=== PATIENT | female | born 1970 | race Caucasian/White ===

== ENCOUNTER → 2018-09-09 | Outpatient (CLI) | payer BC ==
[~2018-09-09] MED LIST: AMBIEN5 MG PO; FLOMAX 0.40.4 MG/CAP PO; MOTRIN 600600 MG/TAB PO; NORCO 325 MG-51 TAB PO
== END ==
LOC: MC.RAD 10:24
DX: Z12.31 Encounter for screening mammogram for malignant neoplasm of breast (principal); Z98.82 Breast implant status

== ENCOUNTER → 2018-12-23 | Outpatient (CLI) | payer BC | LOC: MC.RAD 12-22 07:30 | DX: N63.10 Unspecified lump in the right breast, unspecified quadrant (principal) ==

== ENCOUNTER → 2018-12-25 | Outpatient (CLI) | payer BC | LOC: MC.RAD 12:49 | DX: R59.0 Localized enlarged lymph nodes (principal); Z98.82 Breast implant status | CPT/HCPCS: A4648 ==

== ENCOUNTER → 2018-12-31 | Outpatient (CLI) | payer BC | LOC: MC.RAD 08:58 | DX: N63.42 Unspecified lump in left breast, subareolar (principal); Z98.82 Breast implant status ==

== ENCOUNTER 2019-01-20 07:07 | Day surgery (SDC) | payer BC | END 2019-01-20 10:30 | disposition home or self-care (01) | LOC: SDCO 07:07 | DX: C50.112 Malignant neoplasm of central portion of left female breast (principal); C77.3 Secondary and unspecified malignant neoplasm of axilla and upper limb lymph nodes; Z17.1 Estrogen receptor negative status [ER-]; Z98.82 Breast implant status; I34.0 Nonrheumatic mitral (valve) insufficiency; E78.00 Pure hypercholesterolemia, unspecified; Z90.710 Acquired absence of both cervix and uterus; Z79.899 Other long term (current) drug therapy; Z82.49 Family history of ischemic heart disease and other diseases of the circulatory system ==

== ENCOUNTER → 2019-01-28 | Outpatient (CLI) | payer BC ==
[~2019-01-28] MED LIST changes: +AMBIEN 5MG TABLE5 MG PO; -AMBIEN5 MG PO; +PROBIOTIC FORMU1 CAP PO
== END ==
LOC: MC.RAD 08:07
DX: R92.0 Mammographic microcalcification found on diagnostic imaging of breast (principal); Z98.82 Breast implant status

== ENCOUNTER → 2019-03-26 | Outpatient (CLI) | payer BC | LOC: MC.RAD 07:30 | DX: C50.912 Malignant neoplasm of unspecified site of left female breast (principal); Z92.21 Personal history of antineoplastic chemotherapy ==

== ENCOUNTER → 2019-03-27 | Outpatient (CLI) | payer BC | LOC: COL.VAS 03-26 10:00 | DX: C50.112 Malignant neoplasm of central portion of left female breast (principal); I34.0 Nonrheumatic mitral (valve) insufficiency ==

== ENCOUNTER → 2019-07-21 | Outpatient (CLI) | payer BC | LOC: COL.VAS 07:45 | DX: C50.112 Malignant neoplasm of central portion of left female breast (principal) ==

== ENCOUNTER → 2019-09-21 | Outpatient (CLI) | payer BC ==
--- NOTE | 2019-09-17 09:37 | NUR ---
LMOM FOR PT TO CALL BACK SO WE CAN GATER INFORMATION. LEFT INSTRUCTIONS ON MACHINE. TOLD PT TO TAKE BLOOD PRESSURE MEDS AND STOP ALEVE, ADVIL, IBUPROPHEN AND ASA
[2019-09-21 10:15] VITALS: BP 137/86; PULSE 62
--- NOTE | 2019-09-21 10:25 | NUR ---
Procedure cancelled per Dr. Alamo recommendation. Questions invited and answered. Patient and verbalized understanding and will follow up with Dr. Lafleur.
== END ==
LOC: COL.RAD 09:53
DX: C50.112 Malignant neoplasm of central portion of left female breast (principal)

== ENCOUNTER → 2019-10-26 | Outpatient (CLI) | payer BC | LOC: COL.VAS 11:57 | DX: Z01.810 Encounter for preprocedural cardiovascular examination (principal); C50.112 Malignant neoplasm of central portion of left female breast ==

== ENCOUNTER → 2020-04-29 | Outpatient (CLI) | payer BC | LOC: COL.RAD 14:51 | DX: R10.2 Pelvic and perineal pain (principal); Z85.3 Personal history of malignant neoplasm of breast; Z90.710 Acquired absence of both cervix and uterus | CPT/HCPCS: Q9967 ==

== ENCOUNTER → 2020-07-05 | Outpatient (CLI) | payer BC | LOC: COL.RAD 13:36 | DX: M25.551 Pain in right hip (principal) | CPT/HCPCS: J3301; Q9967 ==

== ENCOUNTER 2021-02-10 09:29 | Day surgery (SDC) | payer BC ==
[~2021-02-10] VITALS: Ht 160 cm; Wt 59.6 kg
[2021-02-10 09:49] VITALS: BP 118/73; PULSE 59; TEMP 98.2
--- NOTE | 2021-02-10 09:57 | NUR ---
TO RM 5 - CALL LIGHT IN REACH
[2021-02-10 11:10] VITALS: BP 114/70; PULSE 57; TEMP 96.9
--- NOTE | 2021-02-10 11:11 | NUR ---
PATIENT TRANSPORTED PER CART FROM GI SUITE TO BAY 5 ACCOMPANED BY ENDO RN. PATIENT AMBULATED FROM CART TO CHAIR WITH 2 ASSIST STEADY GAIT. MONITORS REAPPLIED. VSS ON ROOM AIR. PATIENT TALKING WITH STAFF AND . PATIENT GIVEN JUICE AND MUFFIN REQUESTED.
[2021-02-10 11:15] VITALS: BP 122/81; PULSE 65
[2021-02-10 11:30] VITALS: BP 120/80; PULSE 53
--- NOTE | 2021-02-10 11:30 | NUR ---
VSS ON ROOM AIR. PATIENT TOLERATES FOOD AND JUICE WITHOUT PROBLEMS. PATIENT DENIES NAUSEA AND DISCOMFORT. DR QUACH IN ROOM AND SPEAKS WITH PATIENT AND .
[2021-02-10 11:45] VITALS: BP 124/90; PULSE 52; TEMP 97.3
--- NOTE | 2021-02-10 11:45 | NUR ---
VSS ON ROOM AIR. PATIENT TALKS WITH STAFF AND . IV SITE DC'D WITH CATHETER TIP INTACT. PRESSURE AND BANDAGE APPLIED. DISCHARGE INSTRUCTIONS GIVEN VERBAL AND PATIENT GIVEN DISCHARGE PACKET. QUESTIONS ANWSERED AND PATIENT AND VOICED UNDERSTANDING. PATIENT CHANGED INTO STREET CLOTHES. DISCHARGED PER WHEEL CHAIR ACCOMPANIED BY RN TO PRIVATE VECHILE DRIVEN BY .
== END 2021-02-10 11:49 | disposition home or self-care (01) ==
LOC: SDCO 09:29
DX: Z12.11 Encounter for screening for malignant neoplasm of colon (principal); D12.5 Benign neoplasm of sigmoid colon; K57.30 Diverticulosis of large intestine without perforation or abscess without bleeding; K64.8 Other hemorrhoids; Z90.710 Acquired absence of both cervix and uterus; Z90.12 Acquired absence of left breast and nipple; Z20.822 Contact with and (suspected) exposure to COVID-19; Z83.71 Family history of colonic polyps
CPT/HCPCS: J2704; J3010; J7030